=== PATIENT | male | born 1940 | race Caucasian/White ===

== ENCOUNTER 2019-09-19 18:32 | Emergency (ER) | payer OTHER, SELFPAY ==
--- NOTE | ~2019-09-19 | XR_ITS ---
EXAMINATION: XR chest 1V portable INDICATION: Fever and hypoxia TECHNIQUE: Portable AP chest at 1950 hours COMPARISON: 12/05/2014 FINDINGS: There are airspace opacities of the left lung base. No pleural effusion or pneumothorax is identified. The cardiomediastinal silhouette is normal for technique. IMPRESSION: 1. Left basilar airspace opacity, consistent with atelectasis versus pneumonia. Reviewed, dictated and finalized at location A.
[2019-09-19 18:33] VITALS: BP 204/93; PULSE 73; RESP 15; TEMP 37.7; O2SAT 87
--- NOTE | 2019-09-19 18:36 | ED.FEVER ---
HPI - Fever General Chief Complaint: Fever Stated Complaint: fever/ AMS Time Seen by Provider: 09/19/19 18:35 Source: RN notes reviewed Mode of arrival: EMS Limitations: clinical condition History of Present Illness HPI Narrative: A 78 y/o male presents to the ED via EMS from home with a fever since last night. Per nurse states that the family told EMS that the pt had a fever last night and that his O2 sat was 88%, so the home health nurse started the pt on Zithromax. They also note that the pt is in Hospice but is still a full code. MD elicited complaint: fever Onset (ago): day(s) (last night) Relieving factors: nothing Associated symptoms: other (low O2 sat) Treatments prior to arrival fever: other (Zithromax) Related Data Allergies Allergy/AdvReac Type Severity Reaction Status Date / Time Penicillins Allergy Mild Verified 06/05/12 12:41 Review of Systems Review of Systems: ROS unobtainable: unobtainable due to mental condition Constitutional: Constitutional: Reports fever(s) Respiratory: Respiratory: Reports other (Low O2 sat) [facility] Past Medical History Medical History (Updated 09/19/19 @ 22:33 by Nunu Perez MD) CVA (cerebral vascular accident) Dementia Depression H/O: HTN (hypertension) Hx of Parkinson's disease Hx of transient ischemic attack (TIA) Surgical History Surgical History (Updated 09/19/19 @ 19:30 by Last Haider) Surgical history unknown Social History Social History (Updated 09/19/19 @ 19:30 by Last Haider) Smoking status: Unknown if ever smoked Exam Const: General: cooperative, no acute distress, alert and ill appearing chronically Nutritional Appearance: other (frail) HENMT: Mouth: Yes lip normal and Yes dry mucous membranes Resp: Effort & Inspection: normal respiratory effort Auscultation: rhonchi (Basilar SOUMYA) Cardio: Rate: regular rate Rhythm: regular rhythm GI: GI Palp: Yes Soft to palpation and No Tenderness to palpation present (GI) Auscultation: normal bowel sounds Skin: General skin exam: normal color Neuro: General: other (Alert but not speaking) Cognition (Neuro): normal cognition Extrem: General: no clubbing, cyanosis or edema Psych: Affect: normal affect Attitude: cooperative Course Course Emergency Course: present on reevaluation. Patient nonverbal. Patient is on hospice due to Parkinson's and progressive decline in his overall condition. He has been on hospice for the past 2 months. Patient was hypoxic at home and had a fever yesterday and was placed on oxygen and started on antibiotics. states patient was very sleepy today and was unable to take his medicines, hence why he was brought to the emergency department for evaluation. Patient's nurse did contact hospice nurse who advised that signed paperwork to take him off of hospice to bring him to the emergency department. In speaking with patient's , who is his power of managing attorney for healthcare, she seems very confused about the whole process of hospice and goals of care. Patient was reportedly a full code, but on further discussion with the she confidently stated that he would not want to be on life support and she does not want him to be placed on life support or have CPR and we discussed that that would mean making him a DO NOT RESUSCITATE. Patient's states he should be a DO NOT RESUSCITATE. She also states he would want to be at home where he is comfortable and would be happier at home. She did confirm that overall his goal of care is to be comfortable and she does understand that he is continually declining and states his decline has become more rapid. Offered admission to the hospital for treatment of pneumonia, hypokalemia, and numerous other issues, but did advise that overall if he has been in rapid decline from his chronic health conditions treatment of his pneumonia may not extend his life or improve his quality of life significantly. Ultimately, would like
[2019-09-19 18:41] VITALS: O2SAT 100
[2019-09-19 19:05] LABS: Basophils Percent Auto 0.1 % (0.2-1.2); Hematocrit 29.4 % (42.0-52.0); Hemoglobin 9.1 g/dL (14.0-18.0); Immature Granulocyte Absolute 0.05 K/mm3 (0.00-0.031); Immature Granulocyte Percent A 0.7 % (0-0.5); Lymphocytes Absolute Auto 1.24 K/mm3 (0.9-3.2); Mean Corpuscular Hemoglobin 29.4 pg (26-34); Mean Corpuscular Volume 94.8 fl (80-100); Mean Platelet Volume 10.2 fl (7.4-10.4); Monocytes Absolute Auto 0.6 K/mm3 (0.1-0.6); Neutrophils Percent Auto 72.2 % (45.5-73.1); Platelet Count Result 262 k/mm3 (150-375); Red Cell Distribution Width 13.8 % (11.5-14.5); White Blood Count 6.9 K/mm3 (4.5-10.0)
[2019-09-19 19:15] LABS: INR 1.2; Partial Thromboplastin Time 33.9 SECONDS (22.3-36.8); Prothrombin Time 14.9 Seconds (11.1-14.7)
[2019-09-19 19:17] LABS: Lactic Acid Reflex 1.3 mmol/L (0.7-2.1)
[2019-09-19 19:27] LABS: NT Pro B Type Natriuretic Pept 34300 PG/ML (5-100)
[2019-09-19 19:33] LABS: Alveolar/Arterial O2 Gradient 15.8 mmHg; Base Excess ABG 10.8 mEq/l (+/-2.0); Carboxyhemoglobin 0.2 % THb (0-2.0); Fractional Inspired Oxygen 21 %; HCO3 ABG 34.9 mEq/l (22.0-26.0); Methemoglobin ABG 0.2 %THb (0-1.5); Oxygen Content ABG 13.4 %vol (16.0-22.0); Oxygen Saturation ABG 96.6 % (95.0-100.0); Oxyhemoglobin 94.6 % THb (90.0-100.0); PO2 FiO2 Ratio Arterial Blood 3.81 %; pH ABG 7.508 (7.350-7.450)
[2019-09-19 19:34] LABS: Device ROOM AIR; Modified Allen's Test Pass; Site Drawn RIGHT RADIAL
[2019-09-19 19:42] LABS: Alanine Aminotransferase 6 U/L (4-50); Albumin Level 3.4 g/dL (3.5-5.1); Alkaline Phosphatase 63 U/L (38-126); Aspartate Amino Transferase 16 U/L (17-59); Bilirubin,Total 0.7 mg/dL (0.2-1.3); Blood Urea Nitrogen 29 mg/dL (9-20); CRP 5.5 mg/dL (<1.0); Calcium 8.4 mg/dL (8.4-10.2); Carbon Dioxide > 40 mmol/L (22-30); Chloride 96 mmol/L (98-107); Estimated Glomerular Filt Rate > 60; Glucose 124 mg/dL (75-110); Potassium 2.5 mmol/L (3.4-5.0); Sodium 143 mmol/L (137-145); Troponin I 0.281 ng/mL (0.000-0.034)
[2019-09-19 20:02] LABS: Add Urine Microscopic? YES; Appearance Urine Clear (Clear); Bilirubin Urine Negative (Negative); Blood Urine Negative (Negative); Color Urine Yellow (Yellow); Glucose Urine UA Negative (Negative); Ketones Urine Negative (Negative); Leukocyte Esterase Ur Negative LEU/UL (Negative); Mucus Urine Rare /lpf; Nitrate Urine Negative (Negative); Protein Urine 1+ mg/dL (Negative); RBC Urine 0-2 /hpf (0-2); Specific Grav Ur 1.018 (1.001-1.035); Squamous Epithelial Cell Urine Rare /hpf (Few); WBC Urine 0-3 /hpf
--- NOTE | 2019-09-19 20:03 | PC.NURSE ---
call received from Juliette with [facility]. Updates given. States will call back for further details.
[2019-09-19 20:17] VITALS: BP 175/111; PULSE 72; RESP 20; O2SAT 95
--- NOTE | 2019-09-19 21:00 | PC.NURSE ---
called [facility] at [phone], spoke with Juliette. Discussed pt plan of care. Informed highway painter pt (poa) is confused on hosice and treatment place. quality measurement specialist states she will call to try to send an RN out to speak with pt and family. Dr Perez notified.
--- NOTE | 2019-09-19 21:17 | PC.NURSE ---
call received from Juliette at hospice. Per Juliette pt signed papers to decline hospice at this time. Juliette also reji pt case has been sent to social media marketer so they can follow up with regarding signing off hospice. Dr Perez notified.
--- NOTE | 2019-09-19 22:31 | PC.NURSE ---
called [facility], spoke with Juliette, Informed wants pt to be placed back on hospice and sent home. juliette states she will makes calls and call back. informed on plan of care
[2019-09-19 22:34] VITALS: BP 206/91; PULSE 68; RESP 20; O2SAT 98
--- NOTE | 2019-09-19 22:43 | PC.NURSE ---
spoke with Makenzie Scales with [facility]. Informed pt wants to be reamitted to hospice. States she will send a nurse out to their home
[2019-09-19 23:01] VITALS: BP 207/105; PULSE 66; RESP 20; O2SAT 98
== END 2019-09-19 23:06 | disposition hospice, home (50) ==
PROVIDERS: Emergency Provider Emergency Medicine; PCP Family Medicine Adolescent Medicine
DX: J18.9 Pneumonia, unspecified organism (principal); G20 Parkinson's disease; F03.90 Unspecified dementia, unspecified severity, without behavioral disturbance, psychotic disturbance, mood disturbance, and anxiety; I10 Essential (primary) hypertension; E87.6 Hypokalemia; Z86.73 Personal history of transient ischemic attack (TIA), and cerebral infarction without residual deficits
CPT/HCPCS: 36415; 36600; 51701; 71045; 80053; 81001; 82375; 82805; 83050; 83605; 83880; 84484; 85025; 85610; 85730; 86140; 87040; 87804; 99284